=== PATIENT | female | born 1995 | race African-American/Black ===

== ENCOUNTER 2020-03-15 11:55 | Emergency (ER) | payer MEDICAID, OTHER ==
[~2020-03-15] VITALS: Ht 165.1 cm; Wt 158.0 kg
[2020-03-15] MEDS ORDERED: KETOROLAC 60MG/2ML VIAL IM ONE (13:45)
[2020-03-15 15:06] VITALS: BP 121/100
== END 2020-03-15 16:15 | disposition home or self-care (01) ==
LOC: ER 11:55
DX: S50.12XA Contusion of left forearm, initial encounter (principal); E66.01 Morbid (severe) obesity due to excess calories; Z68.43 Body mass index [BMI] 50.0-59.9, adult; V49.88XA Car occupant (driver) (passenger) injured in other specified transport accidents, initial encounter; Y93.89 Activity, other specified; Y92.89 Other specified places as the place of occurrence of the external cause; Y99.8 Other external cause status
CPT/HCPCS: 29125; 73090; 73110; 73120; 96372; 99284; J1885